=== PATIENT | male | born 1940 | race Caucasian/White ===

== ENCOUNTER → 2022-01-21 | Outpatient (CLI) | payer MEDICARE, BC ==
[~2022-01-21] MED LIST: ASPIRIN E.C. 8181 MG PO; BYSTOLIC10 MG PO; DIGOXIN0.25 MG PO; DIOVAN HCT 25 M1 TA1 PO; FELODIPINE10 MG PO; PROCTOSOL HC2.5% RC; SYNTHROID0.112 MG PO
== END ==
LOC: MHCPAIN 13:18
DX: M47.896 Other spondylosis, lumbar region (principal); M54.16 Radiculopathy, lumbar region
CPT/HCPCS: G0463

== ENCOUNTER → 2022-01-29 | Outpatient (CLI) | payer MEDICARE, BC | LOC: MHCPAIN 13:58 | DX: M47.817 Spondylosis without myelopathy or radiculopathy, lumbosacral region (principal); M53.3 Sacrococcygeal disorders, not elsewhere classified; M54.16 Radiculopathy, lumbar region | CPT/HCPCS: J1100; Q9967 ==